=== PATIENT | male | born 1975 | race Caucasian/White ===

== ENCOUNTER 2017-07-11 15:02 | Emergency (ER) | payer BC ==
--- NOTE | 2017-07-11 15:14 | EDM.PDOC ---
ED HPI GENERAL MEDICAL PROBLEM - General Chief Complaint: Trauma Stated Complaint: FELL OFF LADDER Time Seen by Provider: 07/11/17 15:14 Source of Information: Reports: Patient, RN, RN Notes Reviewed History Limitations: Reports: No Limitations - History of Present Illness INITIAL COMMENTS - FREE TEXT/NARRATIVE: C/O tailbone pain sustained 3 hours ago when pt was approx. 20' up on a ladder when the ladder slid out from under him and he rode it down landing on his buttock. Denies any other injury or area of pain. Rates the pain 4/10 at rest while standing or laying down, but 9/10 sitting or with palpation. Denies radiating pain, numbness, tingling, saddle numbness, loss of bowel or bladder control, or motor weakness. 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 ED EXAM, GENERAL - Physical Exam Exam: See Below Exam Limited By: No Limitations General Appearance: Alert, WD/WN, No Apparent Distress Eye Exam: Bilateral Eye: Normal Inspection Ears: Normal External Exam, Hearing Grossly Normal Nose: Normal Inspection, Normal Mucosa, No Blood Throat/Mouth: Normal Inspection Head: Atraumatic, Normocephalic Neck: Normal Inspection, Supple, Non-Tender, Full Range of Motion Respiratory/Chest: No Respiratory Distress, Lungs Clear, Normal Breath Sounds, No Accessory Muscle Use, Chest Non-Tender Cardiovascular: Normal Peripheral Pulses, Regular Rate, Rhythm, No Edema, No Gallop, No JVD, No Murmur, No Rub GI/Abdominal: Normal Bowel Sounds, Soft, Non-Tender, No Organomegaly, No Distention, No Abnormal Bruit, No Mass Rectal (Males) Exam: Deferred Back Exam: Full Range of Motion, Other (acutely tender to palpation at midline coccyx). No: CVA Tenderness (L), CVA Tenderness (R) Extremities: Normal Inspection, Normal Range of Motion, Non-Tender, Normal Capillary Refill, No Pedal Edema Neurological: Alert, Oriented, CN II-XII Intact, Normal Cognition, Normal Gait, Normal Reflexes, No Motor/Sensory Deficits, Other (GCS 15 on arrival, and at d/c ) Psychiatric: Normal Affect, Normal Mood Skin Exam: Warm, Dry, Intact, Normal Color, No Rash Course - Vital Signs Last Recorded V/S: Last Vital Signs Temp 36.9 C 07/11/17 15:05 Pulse 85 07/11/17 15:05 Resp 20 07/11/17 15:05 BP 141/86 H 07/11/17 15:05 Pulse Ox 99 07/11/17 15:05 - Orders/Labs/Meds Orders: Active Orders 24 hr Category Date Time Status UA W/MICROSCOPIC [URIN] Stat Lab 07/11/17 14:10 Results Labs: Laboratory Tests 07/11/17 07/11/17 07/11/17 Range/Units 14:10 15:24 15:24 WBC 12.1 H (5.0-10.0) 10^3/uL RBC 4.45 L (4.6-6.2) 10^6/uL Hgb 14.2 (14.0-18.0) g/dL Hct 41.9 (40.0-54.0) % MCV 94.2 (80-100) fL MCH 31.9 (27.0-34.0) pg MCHC 33.9 (33.0-35.0) g/dL Plt Count 317 (150-450) 10^3/uL Neut % (Auto) 65.9 (42.2-75.2) % Lymph % (Auto) 24.5 (20.5-50.1) % Snyder % (Auto) 7.9 (2-8) % Eos % (Auto) 1.5 (1.0-3.0) % Baso % (Auto) 0.2 (0.0-1.0) % Sodium 137 (135-145) mmol/L Potassium 3.8 (3.6-5.0) mmol/L Chloride 104 (101-111) mmol/L Carbon Dioxide 23.0 (21.0-31.0) mmol/L Anion Gap 13.8 BUN 11 (7-18) mg/dL Creatinine 0.9 (0.6-1.3) mg/dL Est Cr Clr Drug Dosing 110.40 mL/min Estimated GFR (MDRD) > 60 BUN/Creatinine Ratio 12.22 Glucose 125 H (74-105) mg/dL Calcium 9.7 (8.4-10.2) mg/dl Total Bilirubin 0.6 (0.2-1.0) mg/dL AST 25 (10-42) IU/L ALT 27 (10-60) IU/L Alkaline Phosphatase 47 (42-121) IU/L Total Protein 7.1 (6.7-8.2) g/dl Albumin 4.3 (3.2-5.5) g/dl Globulin 2.8 Albumin/Globulin Ratio 1.54 Urine Color Yellow (YELLOW) Urine Appearance Clear (CLEAR) Urine pH 6.0 (5.0-9.0) Ur Specific Lydia 1.010 (1.005-1.030) Urine Protein Negative (NEGATIVE) Urine Glucose (UA) Negative (NEGATIVE) Urine Ketones Negative (NEGATIVE) Urine Occult Blood Negative (NEGATIVE) Urine Nitrite Negative (NEGATIVE) Urine Bilirubin Negative (NEGATIVE) Urine Urobilinogen 0.2 (0.2-1.0) mg/dL Ur Leukocyte Esterase Negative (NEGATIVE) Meds: Medications Discontinued Medications Generic Name Dose Route Start Last Admin Trade Name Freq PRN Reason Stop Dose Admin Hydrocodone Bitart/Acetaminophen 1 tab 07/11/17 15:21 07/11/17 15:29 [place] 325-10 Mg PO 07/11/17 15:22 1 tab ONETIME ONE Administration - Radiology Interpretation Free Text/Narrative:: CT pelvis: Acute (subtle) nondisplaced cortical fracture, first coccygeal segment near the sacrococcygeal junction. Currently, no associated hematoma or segmental dislocation. Lower lumbar spine, pelvis and hips otherwise unremarkable, i.e. no sign of fracture or dislocation. See rad report. Departure - Departure Time of Disposition: 16:47 Disposition: Home, Self-Care 01 Condition: Fair Clinical Impression: Closed fracture of coccyx Qualifiers: Encounter type: initial encounter Qualified Code(s): S32.2XXA - Fracture of coccyx, initial encounter for closed fracture Fall from ladder Qualifiers: Encounter type: initial encounter Qualified Code(s): W11.XXXA - Fall on and from ladder, initial encounter - Discharge Information Instructions: Tailbone Injury Forms: ED Department Discharge Additional Instructions: Rx: [place] 5mg/325mg Use over the counter Ibuprofen (Motrin/Advil) 200mg: Take 3 tablets by mouth four times a day with food, as needed for pain (do not exceed 2400mg per 24 hour day). Use ice packs to area of pain. Use a 'donut pillow' to remove pressure from the area while sitting. Follow up in clinic next week for recheck. - My Orders Last 24 Hours: My Active Orders 07/11/17 14:10 UA W/MICROSCOPIC [URIN] Stat - Assessment/Plan Last 24 Hours: My Active Orders 07/11/17 14:10 UA W/MICROSCOPIC [URIN] Stat
[2017-07-11] MEDS ORDERED: Acetaminophen/HYDROcodone 325-10 MG Tab PO ONE (15:21)
[2017-07-11 15:50] LABS: CHLORIDE,CL 104 mmol/L (101-111); SODIUM,NA 137 mmol/L (135-145)
--- NOTE | 2017-07-11 16:05 | CT ---
Clinical history: 42-year-old male with pain sacrum/coccyx after fall off 20 foot ladder. Scan technique: Volume acquisition of data emergency unenhanced CT scan of the pelvis, lower spine an d both hips obtained with patient lying supine on the [employer] multi slice CT scanner [facility]. All data archived in the PACS system for storage, reformatting and latoya dy. Interpretation: Abnormal. 1. *Acute (subtle) nondisplaced cortical fracture, first coccygeal segment near the sacrococcygeal ju nction. Currently, no associated hematoma or segmental dislocation. 2. Lower lumbar spine, pelvis and hips otherwise unremarkable i.e. no sign of fracture or dislocation . 3. Symmetric spacing normal-appearing SI and hip joints. No arthritic degenerative changes. 4. No foreign bodies. 5. 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 No pelvic mass or hematoma.
[2017-07-11 16:50] VITALS: BP 140/93
== END 2017-07-11 17:06 | disposition home or self-care (01) ==
LOC: DL.ED 15:02
DX: S32.2XXA Fracture of coccyx, initial encounter for closed fracture (principal); W11.XXXA Fall on and from ladder, initial encounter
CPT/HCPCS: 36415; 72192; 80053; 81001; 85025; 99284; A9270